=== PATIENT | male | born 1980 | race Caucasian/White ===

== ENCOUNTER 2019-02-10 14:01 | Inpatient (IN) | payer OTHER ==
[~2019-02-10] VITALS: Ht 182.9 cm; Wt 115.3 kg
[2019-02-10 14:03] VITALS: BP 116/68
[2019-02-10 14:37] LABS: BASOPHILS 0.7 % (0.0-2.0); HEMATOCRIT 45.3 % (42.0-52.0); HEMOGLOBIN 15.5 gm/dL (14.0-18.0); MCHC 34.3 g/dL (28.0-37.0); MCV 90.4 fL (80.0-100.0); MONOCYTES 9.4 % (1.0-8.0); PLATELET COUNT 190 thou/uL (150-400); POLYS 56.9 % (36.0-66.0); RBC 5.01 mil/uL (4.50-6.00); WBC 5.2 thou/uL (4.0-11.0)
[2019-02-10 14:50] LABS: CALCIUM 10.1 mg/dL (8.5-10.1); CREATININE 1.1 mg/dL (0.7-1.3); POTASSIUM 3.4 mmol/L (3.5-5.1)
[2019-02-10 14:54] LABS: ALBUMIN 4.2 g/dL (3.4-5.0); TOTAL BILIRUBIN 0.6 mg/dL (<0.1-1.0); TOTAL PROTEIN 7.3 g/dL (6.4-8.2)
[2019-02-10 15:08] LABS: APTT 23.1 Seconds (24.5-32.8); PROTIME 10.4 Seconds (9.3-11.4)
[2019-02-10 15:18] LABS: URINE BILIRUBIN NEGATIVE (Negative); URINE BLOOD NEGATIVE (Negative); URINE CLARITY CLEAR; URINE COLOR YELLOW; URINE GLUCOSE-RANDOM* 3+ (Negative); URINE KETONES NEGATIVE (Negative); URINE LEUKOCYTES-REFLEX NEGATIVE (Negative); URINE NITRITE-REFLEX NEGATIVE (Negative); URINE PROTEIN (DIPSTICK) NEGATIVE (Negative); URINE SPECIFIC GRAVITY 1.025 (1.005-1.035); URINE UROBILINOGEN 0.2 E.U./dl (0.2-1.0)
[2019-02-10] MEDS ORDERED: OZEMPIC1 MG/0.75 SUBQ (16:56)
[2019-02-10] MEDS ORDERED: GLIPIZIDE 10 MG10 MG PO (16:57)
[2019-02-10] MEDS ORDERED: LIPITOR20 MG PO (16:57)
[2019-02-10] MEDS ORDERED: TRIGLIDE160 MG PO (16:57)
[2019-02-10] MEDS ORDERED: JARDIANCE25 MG PO (16:58)
[2019-02-10] MEDS ORDERED: LOSARTAN-HCTZ1 EAC3 PO (16:58)
[2019-02-10 17:01] LABS: MAGNESIUM 1.8 mg/dL (1.8-2.4); TROPONIN-I <0.06 ng/mL (<0.06)
[2019-02-10 17:23] VITALS: BP 133/77
[2019-02-10 17:39] VITALS: BP 132/79
[2019-02-10 18:33] VITALS: BP 138/76
[2019-02-10 19:16] VITALS: BP 99/51
[2019-02-10] MEDS ORDERED: AMARYL4 MG PO (21:26)
[2019-02-10] MEDS ORDERED: LIPITOR 20 MG T20 M1 PO (21:29)
[2019-02-10 23:56] VITALS: BP 114/50
[2019-02-11] VITALS (8 sets, daily range): BP systolic 106–133; BP diastolic 62–91
--- NOTE | 2019-02-11 04:18 | NUR ---
pt care assumed at 1900,pt alert and orientedx4, vital signs stable, admission and medication reconcilliation completed, assessments as charted,denies chest pain, rested well, progressing towards plan of care, will continue to monitor
[2019-02-11 04:58] LABS: HEMATOCRIT 41.3 % (42.0-52.0); HEMOGLOBIN 13.8 gm/dL (14.0-18.0); MCH 30.4 pg (26.0-34.0); MCHC 33.5 g/dL (28.0-37.0); MCV 90.8 fL (80.0-100.0); RBC 4.55 mil/uL (4.50-6.00); RDW 13.1 % (10.5-14.5); WBC 5.1 thou/uL (4.0-11.0)
[2019-02-11 05:27] LABS: CALCIUM 8.8 mg/dL (8.5-10.1); CREATININE 0.9 mg/dL (0.7-1.3); MAGNESIUM 1.8 mg/dL (1.8-2.4); POTASSIUM 3.5 mmol/L (3.5-5.1)
--- NOTE | 2019-02-11 09:58 | EKG ---
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 : 1980 Requested By: Mary Becker Order Number: [id number] MD: Semaj Still Measurements Intervals [place] Rate: 108 P: 22 CO: 164 QRS: 16 QRSD: 109 T: -37 QT: 341 QTc: 457 Interpretive Statements Sinus tachycardia Nonspecific ST segment abnormality Compared to ECG 11/10/2000 04:14:[address] segment abnormality is now present Electronically Signed On 02-11-2019 9:57:46 [employer]ER[employer] by Semaj Still [email or web address] <ELECTRONICALLY SIGNED> By: Semaj Still MD, [facility] 02/11/19 0957 150 150 Semaj Still MD, [facility] /EPI
--- NOTE | 2019-02-11 10:25 | 2DMMODE ---
[facility] [address] [place] [address] 2 D/M-MODE ECHOCARDIOGRAM Name: JOSE BONILLA Room #: 201-P [facility] [place] [facility]#: [id number] Admission: 02/10/19 Attend Phys: David Posey, Discharge: Date of : 76 Report #: [id number] THIS REPORT FOR: //name// APPROVED REPORT Study performed: 02/11/2019 09:22:08 EXAM: Comprehensive 2D, Doppler, and color-flow Echocardiogram Patient Location: Bedside Room #: 201 Status: on-call BSA: 2.36 HR: 98 bpm BP: 106/62 mmHg Rhythm: Tachycardia Other Information Study Quality: Adequate Indications Diabetes Palpitations Hypertension/HDD 2D Dimensions RVDd: 44.07 mm IVSd: 11.21 (7-11mm) LVOT Diam: 21.50 (18-24mm) LVDd: 44.22 mm PWd: 12.17 (7-11mm) Ascending Ao: 26.36 (22-36mm) LVDs: 30.20 (25-40mm) Aortic Root: 29.24 mm IVC: 19.00 mm Volumes Left Atrial Volume (Systole) Single Plane 4CH: 25.44 mL Single Plane 2CH: 34.01 mL LA ESV Index: 14.00 mL/m2 Aortic Valve AoV Peak Clifford.: 1.13 m/s AO Peak Gr.: 5.08 mmHg LVOT Max P.10 mmHg LVOT Max V: 1.01 m/s ROSALBA Vmax: 3.26 cm2 Mitral Valve [facility] [address] [place] [address] 2 D/M-MODE ECHOCARDIOGRAM Name: JOES BONILLA Room #: 201-P [facility]#: [id number] Admission: 02/10/19 Attend Phys: David Posey, Discharge: Date of : 76 Report #: [id number] E/A Ratio: 1.1 MV Decel. Time: 152.43 ms MV E Max Clifford.: 0.84 m/s MV A Clifford.: 0.79 m/s MV PHT: 44.20 ms IVRT: 79.58 ms Pulmonary Valve PV Peak Clifford.: 1.35 m/s PV Peak Gr.: 7.25 mmHg Pulmonary Vein P Vein S: 0.34 m/s P Vein A: 0.37 m/s P Vein D: 0.55 m/s P Vein A Dur.: 129.2 msec P Vein S/D Ratio: 0.62 Tricuspid Valve TR Peak Clifford.: 2.62 m/s RAP Estimate: 5.00 mmHg TR Peak Gr.: 27.38 mmHg PA Pressure: 32.00 mmHg Left Ventricle The left ventricle is normal size. There is normal LV segmental wall motion. Mild concentric left ventricular hypertrophy. The left ventricular systolic function is normal. The left ventricular ejection fraction is within the normal range. LVEF is 60%. The left ventricular diastolic function is normal. Right Ventricle Right ventricle is mildly dilated. The right ventricular systolic function is normal. Atria The left atrium size is normal. Right atrium is mildly dilated. Aortic Valve The aortic valve is normal in structure. No aortic regurgitation is present. There is no aortic valvular stenosis. Mitral Valve The mitral valve is normal in structure. There is no mitral valve regurgitation noted. No evidence of mitral valve stenosis. Tricuspid Valve The tricuspid valve is normal in structure. Trace tricuspid regurgitation. PAP is estimated at 30 mmHg. [facility] [address] [place] [address] 2 D/M-MODE ECHOCARDIOGRAM Name: BONILLASALVATOREJOSE Miguel Room #: 201-P [facility] [place] ..#: [id number] Admission: 02/10/19 Attend Phys: David Posey, Discharge: Date of : 76 Report #: [id number] Pulmonic Valve The pulmonary valve is normal in structure. There is no pulmonic valvular regurgitation. Great Vessels The aortic root is normal in size. IVC is normal in size and collapses >50% with inspiration. Pericardium There is no pericardial effusion. <Conclusion> 1. Normal echocardiogram with Doppler. Ejection fraction 60% 2. Structural valvular disease was absent. No significant regurgitant or stenotic lesions. 3. Pulmonary artery pressure 30 mmHg. 4. No pericardial effusion. <ELECTRONICALLY SIGNED> By: Semaj Still MD, [facility] 02/11/19 1025 1025 102 Semaj Still MD, [facility] /INF
[2019-02-11] MEDS ORDERED: COZAAR 25 MG TA25 M2 PO (12:59)
--- NOTE | 2019-02-11 13:50 | NUR ---
ASSUMED CARE 0700, A/OX4, DENIES PAIN, NO DIARRHEA THIS NOTED AT THIS TIME. WILL DC HOME WITH SELF CARE TODAY.
== END 2019-02-11 14:53 | disposition home or self-care (01) | DRG 312 ==
LOC: ER 14:01 → EROBS 17:09 → 2N 17:39
PROVIDERS: Emergency Medicine; ADMIT Internal Medicine
DX: R55 Syncope and collapse (principal); E11.9 Type 2 diabetes mellitus without complications; R19.7 Diarrhea, unspecified; I10 Essential (primary) hypertension; R00.2 Palpitations; E78.5 Hyperlipidemia, unspecified; Z79.01 Long term (current) use of anticoagulants; Z79.899 Other long term (current) drug therapy; Z88.0 Allergy status to penicillin; Z88.8 Allergy status to other drugs, medicaments and biological substances; Z79.82 Long term (current) use of aspirin
CPT/HCPCS: 10194

== ENCOUNTER 2019-10-23 12:11 | Emergency (ER) | payer OTHER ==
[~2019-10-23] VITALS: Ht 185.4 cm; Wt 110.2 kg
[~2019-10-23 12:11] MED LIST: AMARYL4 MG PO; COZAAR 25 MG TA25 M2 PO; GLIPIZIDE 10 MG10 MG PO; JARDIANCE25 MG PO; LIPITOR 20 MG T20 M1 PO; LIPITOR20 MG PO; LOSARTAN-HCTZ1 EAC3 PO; OZEMPIC1 MG/0.75 SUBQ; TRIGLIDE160 MG PO
[2019-10-23 12:50] LABS: ABSOLUTE NEUTROPHILS 5.3 thou/uL (1.4-8.2); BASOPHILS 0.8 % (0.0-2.0); EOSINOPHILS 0.7 % (0.0-3.0); HEMATOCRIT 49.2 % (42.0-52.0); HEMOGLOBIN 16.9 gm/dL (14.0-18.0); LYMPHOCYTES 21.7 % (24.0-44.0); MCH 30.9 pg (26.0-34.0); MCHC 34.2 g/dL (28.0-37.0); MCV 90.2 fL (80.0-100.0); MONOCYTES 8.2 % (1.0-8.0); PLATELET COUNT 228 thou/uL (150-400); POLYS 68.6 % (36.0-66.0); RBC 5.46 mil/uL (4.50-6.00); WBC 7.7 thou/uL (4.0-11.0)
[2019-10-23 12:54] LABS: CALCIUM 9.9 mg/dL (8.5-10.1); CREATININE 1.3 mg/dL (0.7-1.3); POTASSIUM 4.5 mmol/L (3.5-5.1)
[2019-10-23 13:03] LABS: URINE BLOOD NEGATIVE (Negative); URINE CLARITY CLEAR; URINE COLOR YELLOW; URINE GLUCOSE-RANDOM* 3+ (Negative); URINE KETONES 1+ (Negative); URINE LEUKOCYTES-REFLEX NEGATIVE (Negative); URINE NITRITE-REFLEX NEGATIVE (Negative); URINE PROTEIN (DIPSTICK) NEGATIVE (Negative); URINE SPECIFIC GRAVITY 1.025 (1.005-1.035); URINE UROBILINOGEN 0.2 E.U./dl (0.2-1.0)
[2019-10-23 13:44] LABS: ICTOTEST (BILI CONFIRMATORY) Negative (Negative); URINE BILIRUBIN NEGATIVE (Negative)
[2019-10-23 14:27] LABS: ALBUMIN 4.7 g/dL (3.4-5.0); DIRECT BILIRUBIN 0.1 mg/dL (<0.1-0.2); TOTAL BILIRUBIN 0.6 mg/dL (0.2-1.0); TOTAL PROTEIN 8.5 g/dL (6.4-8.2)
[2019-10-23] MEDS ORDERED: ZOFRAN ODT4 MG DISSOLVE (16:35)
[2019-10-23] MEDS ORDERED: TESSALON PERLE100 MG PO (16:35)
[2019-10-23 16:48] VITALS: BP 113/78
--- NOTE | 2019-10-24 07:49 | EKG ---
[facility] [place] [address] ELECTROCARDIOGRAM REPORT Name: JOSE BONILLA Room #: [facility]#: [id number] Admission: 10/23/19 Attend Phys: Discharge: 10/23/19 Date of : 76 Report #: [id number] THIS REPORT FOR: cc: JAGJIT - No family physician/PCP JAGJIT - No family physician/PCP Semaj Still MD [facility] THIS REPORT FOR: //name// 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: [facility] : 1980 Requested By: Dara Ward Order Number: [id number] MD: Semaj Still Measurements Intervals [place] Rate: 103 P: 12 MD: 162 QRS: 5 QRSD: 101 T: -23 QT: 329 QTc: 431 Interpretive Statements Sinus tachycardia Nonspecific ST segment abnormality Compared to ECG 02/10/2019 15:07:54 No significant change was found Electronically Signed On 10-24-2019 7:48:46 CDT by Semaj Still [email or web address] <ELECTRONICALLY SIGNED> By: Semaj Still MD, FACC 10/24/19 0748 1247 1247 Semaj Still MD, [facility] /EPI
--- NOTE | 2019-10-24 09:27 | EKG ---
[facility] [place] [address] ELECTROCARDIOGRAM REPORT Name: JOSE BONILLA Miguel Room #: [facility]#: [id number] Admission: 10/23/19 Attend Phys: Discharge: 10/23/19 Date of : 76 Report #: [id number] THIS REPORT FOR: cc: JAGJIT - No family physician/PCP JAGJIT - No family physician/PCP Semaj Still MD [facility] THIS REPORT FOR: //name// 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
== END 2019-10-23 16:50 | disposition home or self-care (01) ==
LOC: ER 12:11
PROVIDERS: Emergency Medicine; Physician Assistant
DX: R19.7 Diarrhea, unspecified (principal); Z20.828 Contact with and (suspected) exposure to other viral communicable diseases; M79.10 Myalgia, unspecified site; R00.0 Tachycardia, unspecified; M54.5 Low back pain; R05 Cough; R06.02 Shortness of breath; J45.909 Unspecified asthma, uncomplicated; E11.9 Type 2 diabetes mellitus without complications; I10 Essential (primary) hypertension; E78.00 Pure hypercholesterolemia, unspecified; E66.9 Obesity, unspecified; Z68.32 Body mass index [BMI] 32.0-32.9, adult; Z79.899 Other long term (current) drug therapy; Z88.0 Allergy status to penicillin; Z88.8 Allergy status to other drugs, medicaments and biological substances

== ENCOUNTER 2020-11-12 08:49 | Emergency (ER) | payer BC, OTHER ==
[~2020-11-12] VITALS: Ht 185.4 cm; Wt 120.7 kg
[~2020-11-12 08:49] MED LIST changes: +TESSALON PERLE100 MG PO; +ZOFRAN ODT4 MG DISSOLVE
[2020-11-12 09:27] LABS: HEMATOCRIT 42.5 % (42.0-52.0); HEMOGLOBIN 14.8 gm/dL (14.0-18.0); MCH 31.3 pg (26.0-34.0); MCHC 34.7 g/dL (28.0-37.0); MCV 90.1 fL (80.0-100.0); RBC 4.72 mil/uL (4.50-6.00); RDW 12.6 % (10.5-14.5); WBC 4.7 thou/uL (4.0-11.0)
[2020-11-12 09:34] LABS: CALCIUM 9.4 mg/dL (8.5-10.1); CREATININE 1.3 mg/dL (0.7-1.3); POTASSIUM 4.3 mmol/L (3.5-5.1)
[2020-11-12 09:43] LABS: URINE BLOOD NEGATIVE (Negative); URINE CLARITY CLEAR; URINE COLOR YELLOW; URINE GLUCOSE-RANDOM* 2+ (Negative); URINE KETONES NEGATIVE (Negative); URINE LEUKOCYTES-REFLEX NEGATIVE (Negative); URINE NITRITE-REFLEX NEGATIVE (Negative); URINE PROTEIN (DIPSTICK) NEGATIVE (Negative); URINE SPECIFIC GRAVITY >= 1.030 (1.005-1.035); URINE UROBILINOGEN 0.2 E.U./dl (0.2-1.0)
[2020-11-12 09:47] LABS: URINE BILIRUBIN NEGATIVE (Negative)
[2020-11-12 09:48] LABS: ICTOTEST (BILI CONFIRMATORY) Negative (Negative)
[2020-11-12] MEDS ORDERED: DOXYCYCLINE 10100 MG PO (10:20)
[2020-11-12 10:39] VITALS: BP 142/92
== END 2020-11-12 10:39 | disposition home or self-care (01) ==
LOC: ER 08:49
PROVIDERS: Student in an Organized Health Care Education/Training Program
DX: R05 Cough (principal); J32.9 Chronic sinusitis, unspecified; E11.9 Type 2 diabetes mellitus without complications; I10 Essential (primary) hypertension; Z20.822 Contact with and (suspected) exposure to COVID-19; Z88.0 Allergy status to penicillin; Z88.8 Allergy status to other drugs, medicaments and biological substances; Z79.899 Other long term (current) drug therapy

== ENCOUNTER 2021-01-06 18:45 | Emergency (ER) | payer BC, OTHER ==
[~2021-01-06] VITALS: Ht 185.4 cm; Wt 120.2 kg
[~2021-01-06 18:45] MED LIST changes: +DOXYCYCLINE 10100 MG PO
[2021-01-06 19:44] LABS: ABSOLUTE NEUTROPHILS 6.3 thou/uL (1.4-8.2); BASOPHILS 0.4 % (0.0-2.0); EOSINOPHILS 0.5 % (0.0-3.0); HEMATOCRIT 46.7 % (42.0-52.0); HEMOGLOBIN 16.1 gm/dL (14.0-18.0); LYMPHOCYTES 16.9 % (24.0-44.0); MCH 30.8 pg (26.0-34.0); MCHC 34.4 g/dL (28.0-37.0); MCV 89.7 fL (80.0-100.0); MONOCYTES 9.2 % (1.0-8.0); PLATELET COUNT 192 thou/uL (150-400); RBC 5.21 mil/uL (4.50-6.00); RDW 13.7 % (10.5-14.5); WBC 8.7 thou/uL (4.0-11.0)
[2021-01-06 19:47] LABS: CALCIUM 9.2 mg/dL (8.5-10.1); CREATININE 1.2 mg/dL (0.7-1.3); POTASSIUM 3.7 mmol/L (3.5-5.1)
[2021-01-06] MEDS ORDERED: APAP W/CODEINE1 TA2 PO (21:45)
[2021-01-06] MEDS ORDERED: LOMOTIL TABLET1 EACH PO (21:45)
[2021-01-06 22:43] VITALS: BP 137/87
== END 2021-01-06 22:44 | disposition home or self-care (01) ==
LOC: ER 18:45
PROVIDERS: Emergency Medicine
DX: K52.9 Noninfective gastroenteritis and colitis, unspecified (principal); I10 Essential (primary) hypertension; E78.5 Hyperlipidemia, unspecified; E11.9 Type 2 diabetes mellitus without complications; Z79.891 Long term (current) use of opiate analgesic; Z79.899 Other long term (current) drug therapy; Z88.0 Allergy status to penicillin; Z88.6 Allergy status to analgesic agent; Z88.8 Allergy status to other drugs, medicaments and biological substances